=== PATIENT | female | born 1955 | race Caucasian/White ===

== ENCOUNTER 2016-05-13 19:45 | Inpatient (IN) | payer OTHER ==
[~2016-05-13] VITALS: Ht 157.5 cm; Wt 61.0 kg
--- NOTE | ~2016-05-13 | EKG ---
[address] [place] [address] ELECTROCARDIOGRAM REPORT Name: CALVIN EISENBERG Room #: 426-P ADM IN M.R.#: [id number] Admission: 05/13/16 Attend Phys: Garret Minor MD Discharge: Date of : 55 Report #: [id number] THIS REPORT FOR: //name// [facility] ED Test Date: 2016-05-13 Test Time: 19:50:03 Pat Name: CALVIN EISENBERG Department: Room: [facility] Gender: F Barber Stylist: JUSTYN : 1955 Requested By: Malik Rocha Order Number: [id number] MD: Devan Jaquez Measurements Intervals Chemult Rate: 105 P: 79 OH: 177 QRS: 63 QRSD: 100 T: 60 QT: 341 QTc: 451 Interpretive Statements Sinus tachycardia LAE Nonspecific ST segment abnormality No previous ECG available for comparison Electronically Signed On 05-14-2016 12:33:34 CDT by Devan Jaquez [email or web address] <ELECTRONICALLY SIGNED> By: Devan Jaquez MD 05/14/16 1233 1950 1950 Devan Jaquez MD /TERRENCE
--- NOTE | ~2016-05-13 | H ---
[facility] [place] [address] HISTORY AND PHYSICAL Name: CALVIN EISENBERG LADAN Room #: 426-P [facility] IN M.R.#: [id number] Admission: 05/13/16 Attend Phys: Garret Minor MD Discharge: 05/15/16 Date of : 55 Report #: [id number] THIS REPORT FOR: //name// CC: Garret Castro DATE OF SERVICE: 05/13/2016 ATTENDING PHYSICIAN: Garret Minor M.D. PRIMARY CARE PHYSICIAN: Carlyn Castro M.D., but she says she has to change to a new PCP. CHIEF COMPLAINT: Shortness of breath. HISTORY OF PRESENT ILLNESS: The patient is a 60-year-old female who continues to smoke 2 packs of cigarettes per day. She has been smoking for at least 40 years. She denies any prior diagnosis of COPD. She says she fell a week ago and hit the right side of her chest on a footboard of a bed. She says she feels like she bruised some ribs there and has continued to have some pain there. She noticed in the last 3 to 4 days increasing shortness of breath. This was new for her. She is normally very active and cleans houses for a living and is normally able to carry vacuums and supplies up and down stairs without any dyspnea on exertion. She states today when she was working, she had to stop multiple times because her chest was feeling tight and congested, and she was very short of breath. She has noticed some mild cough in the last few days, but denies any fevers. She says she normally gets bronchitis a few times a year. She has never had any formal diagnosis of COPD and has never seen a orthodontic lab technician. She has never had any pulmonary function tests and does not require any inhalers or nebulizer treatments at home. She was mildly hypoxic in the ER with oxygen saturation of 87% on room air. She has been admitted for COPD exacerbation and possible pneumonia. PAST MEDICAL HISTORY: Hypertension, hyperlipidemia and IBS. PAST SURGICAL HISTORY: Hysterectomy, knee surgery and appendectomy. ALLERGIES: None. HOME MEDICATIONS: Hyoscyamine 0.375 mg b.i.d., atorvastatin 10 mg daily, metoprolol 100 mg daily, amlodipine 5 mg daily, benazepril 40 mg daily, Tofranil 50 mg daily, calcium with vitamin D 1 tab daily, hydrochlorothiazide 25 mg daily, Prevacid 30 mg daily, estradiol 0.5 mg daily and vitamin D 400 units daily. SOCIAL HISTORY: The patient is an active smoker, smoking up to 2 packs per day [address] [address] HISTORY AND PHYSICAL Name: CALVIN EISENBERG LADAN Room #: 426-P [facility] IN M.R.#: [id number] Admission: 05/13/16 Attend Phys: Garret Minor MD Discharge: 05/15/16 Date of : 55 Report #: [id number] for the last 40 years. She does drink 5-6 beers per day, and has been doing this for many years as well. She lives alone. Denies any drug use. She works with a cleaning service. FAMILY HISTORY: Her father of heart disease. She also had multiple uncles and grandfather who had MIs. Her mother of lung cancer. REVIEW OF SYSTEMS: A 12-point review of systems was reviewed with the patient, and otherwise negative unless stated in the HPI. PHYSICAL EXAMINATION: GENERAL: The patient is an alert female, in no acute distress. VITAL SIGNS: Temperature is 36.9, heart rate 107, respirations 22, blood pressure is 167/87 and oxygen was 87% on room air on arrival. HEENT: PERRLA. Sclerae are nonicteric. Oral mucosa is pink and moist. NECK: Supple. No JVD noted. CARDIOVASCULAR: Normal S1 and S2. No murmurs, rubs or gallops. RESPIRATORY: Breath sounds with a few scattered expiratory wheezes bilaterally. She is very diminished in both bases. She has a loose nonproductive cough. ABDOMEN: Soft, nontender and nondistended with positive bowel sounds. VASCULAR: No edema noted. Pedal pulses are 2+. NEUROLOGIC: The patient is alert and oriented x 3. Speech is clear. She is moving all extremities equally. No focal neuro deficits noted. I did see her ambulate to the bathroom, and she was steady on her feet. SKIN: Intact. No rashes or lesions. LABORATORY DATA AND DIAGNOSTICS: WBC is 20.7, hemoglobin 14.8, bands are 5% and platelets 348. Sodium 131, potassium 3.3, BUN 7, creatinine 0.6 and glucose 114. LFTs are within normal limits. Troponins negative. D-dimer is 0.41. BNP 1300. EKG showing sinus tachycardia, rate of 105. Lipase is 135. Chest x-ray showed slight hyperinflation with no acute infiltrates detected. UA is negative for leukocyte esterase and WBCs. ABG showed a pH of 7.47, pCO2 of 35.9, pO2 of 73.7 and bicarbonate of 25.3 with a lactate of 0.85. ASSESSMENT AND PLAN: 1. Acute hypoxic respiratory failure: This is a probable chronic obstructive pulmonary disease exacerbation. Continue with breathing treatments and IV steroids and wean oxygen as able. She will need to have a formal diagnosis of chronic obstructive pulmonary disease at some point and follow up with Pulmonary outpatient for pulmonary function test and get set up on her maintenance therapies. Her BNP is slightly elevated. We will also check an echocardiogram in the morning. 2. Possible pneumonia: She does have associated leukocytosis and cough. We will try to obtain a sputum culture and follow blood cultures. Add Mucinex and breathing treatments. 3. Hypertension: Blood pressure is stable. Continue home medications. [facility] [address] [address] HISTORY AND PHYSICAL Name: CALVIN EISENBERG LADAN Room #: 426-P [facility] IN [facility].#: [id number] Admission: 05/13/16 Attend Phys: Garret Minor MD Discharge: 05/15/16 Date of : 55 Report #: [id number] 4. Hyperlipidemia: This is stable. Continue home medications. 5. Ongoing tobacco abuse: The patient has been advised to quit. 6. Hypokalemia: This is being replaced. Repeat labs in the morning. 7. Alcohol abuse: We will monitor for any signs of alcohol withdrawal, and if so, place on the alcohol withdrawal protocol. 8. Deep vein thrombosis prophylaxis: Start Lovenox. We will continue to follow the patient closely throughout the hospitalization and make changes based on clinical status. <ELECTRONICALLY SIGNED> By: TEO Wilkes 05/17/16 0658 0634 08 TEO Wilkes /mckay
[~2016-05-13 19:45] MED LIST: LOTREL 10-20 M1 EACH PO; NORVASC; VICODIN
[2016-05-13 19:48] VITALS: BP 167/87
[2016-05-13] MEDS ORDERED: NORVASC5 MG PO (20:10)
[2016-05-13] MEDS ORDERED: ESTRADIOL 1 MG T1 M1 PO (20:11)
[2016-05-13] MEDS ORDERED: OSCIMIN SR0.375 MG PO (20:11)
[2016-05-13] MEDS ORDERED: LIPITOR10 MG PO (20:11)
[2016-05-13] MEDS ORDERED: TOFRANIL50 MG PO (20:11)
[2016-05-13] MEDS ORDERED: BENAZEPRIL HCL40 MG PO (20:12)
[2016-05-13] MEDS ORDERED: HYDROCHLOROTHIA25 M1 PO (20:12)
[2016-05-13] MEDS ORDERED: TOPROL XL100 MG PO (20:12)
[2016-05-13] MEDS ORDERED: CALCIUM 600 +1 EAC1 PO (20:13)
[2016-05-13] MEDS ORDERED: PREVACID30 MG PO (20:13)
[2016-05-13] MEDS ORDERED: VITAMIN D3400 UNIT PO (20:13)
[2016-05-13 20:21] LABS: HEMATOCRIT 43.4 % (37.0-47.0); HEMOGLOBIN 14.8 gm/dL (12.0-15.0); MCH 30.3 pg (26.0-34.0); MCHC 34.1 g/dL (28.0-37.0); MCV 88.6 fL (80.0-100.0); PLATELET COUNT 348 thou/uL (150-400); WBC 20.7 thou/uL (4.0-11.0)
[2016-05-13 20:23] LABS: MANUAL DIFF YES
[2016-05-13 20:32] LABS: ANION GAP 11 mmol/L (7-16); BUN 7 mg/dL (7-18); CALCIUM 9.2 mg/dL (8.5-10.1); CHLORIDE 93 mmol/L (98-107); CO2 27 mmol/L (21-32); CREATININE 0.6 mg/dL (0.6-1.3); GLUCOSE 114 mg/dL (70-99); POTASSIUM 3.3 mmol/L (3.5-5.1); SODIUM 131 mmol/L (136-145)
[2016-05-13 20:39] LABS: ALBUMIN 3.7 g/dL (3.4-5.0); ALKALINE PHOSPHATASE 108 U/L (46-116); DIRECT BILIRUBIN < 0.1 mg/dL (<0.1-0.3); SGOT 17 U/L (15-37); SGPT 21 U/L (30-65); TOTAL BILIRUBIN 0.4 mg/dL (<0.1-1.0); TROPONIN-I < 0.04 ng/mL (<0.04-0.07)
[2016-05-13 20:43] LABS: ABG SAMPLE TYPE ARTERIAL; BE(vivo) 1.9 mmol/L (-2 to +3); HCO3 25.3 mmol/L (22.0-26.0); LACTATE 0.85 mmol/L (0.5-2.0); O2(CT) 19.1 mL/dL (15.0-23.0); O2Hb 92.1 % (92.0-98.0); PCO2 35.9 mmHg (35.0-45.0); PO2 73.7 mmHg (80.0-100.0); STICK SITE L.RADIAL; pH 7.466 (7.360-7.450); sO2 95.7 % (92.0-98.0); tCO2 26.4 mmol/L (24.0-30.0)
[2016-05-13 21:07] LABS: URINE BILIRUBIN NEGATIVE (Negative); URINE BLOOD 1+ (Negative); URINE COLOR YELLOW; URINE GLUCOSE-RANDOM* NEGATIVE (Negative); URINE KETONES 1+ (Negative); URINE NITRITE NEGATIVE (Negative); URINE PROTEIN (DIPSTICK) 1+ (Negative); URINE SPECIFIC GRAVITY 1.015 (1.003-1.035); URINE UROBILINOGEN 0.2 E.U./dl (0.2-1.0)
[2016-05-13 21:14] LABS: SQUAMOUS 4-10 Moderate /LPF (0-3)
[2016-05-13 21:15] LABS: BACTERIA None Seen /HPF (None Seen); CASTS None Seen /LPF (None Seen); CRYSTALS None Seen /LPF (None Seen); URINE RBC 0-2 Rare /HPF (0-2); URINE WBC None Seen /HPF (0-5)
[2016-05-13 21:30] LABS: ABSOLUTE NEUTROPHILS 17.6 thou/uL (1.4-8.2); ATYPICAL LYMPHS 1 %; TOTAL CELL COUNT 100
[2016-05-13 23:19] VITALS: BP 151/62
[2016-05-13 23:30] VITALS: BP 158/90
[2016-05-14 03:58] LABS: HEMATOCRIT 39.8 % (37.0-47.0); HEMOGLOBIN 13.5 gm/dL (12.0-15.0); MCH 30.1 pg (26.0-34.0); MCHC 33.9 g/dL (28.0-37.0); MCV 88.8 fL (80.0-100.0); RBC 4.48 mil/uL (4.20-5.00); RDW 13.8 % (10.5-14.5); WBC 14.4 thou/uL (4.0-11.0)
[2016-05-14 04:00] VITALS: BP 135/58
[2016-05-14 08:11] VITALS: BP 118/52
[2016-05-14 15:35] VITALS: BP 119/57
[2016-05-14 19:31] VITALS: BP 123/75
[2016-05-15 03:38] LABS: HEMATOCRIT 37.5 % (37.0-47.0); HEMOGLOBIN 12.7 gm/dL (12.0-15.0); MCH 30.1 pg (26.0-34.0); MCHC 33.8 g/dL (28.0-37.0); MCV 88.9 fL (80.0-100.0); PLATELET COUNT 342 thou/uL (150-400); RBC 4.21 mil/uL (4.20-5.00); WBC 22.4 thou/uL (4.0-11.0)
[2016-05-15 03:43] LABS: MANUAL DIFF YES
[2016-05-15 03:51] LABS: CALCIUM 8.4 mg/dL (8.5-10.1); CREATININE 0.6 mg/dL (0.6-1.3)
[2016-05-15 03:57] VITALS: BP 132/68
[2016-05-15 05:03] LABS: ABSOLUTE NEUTROPHILS 20.8 thou/uL (1.4-8.2); TOTAL CELL COUNT 100; TOXIC GRANULATION 1+
[2016-05-15 06:55] VITALS: BP 124/70
[2016-05-15] MEDS ORDERED: PREDNISONE 10 M10 MG PO (14:20)
[2016-05-15] MEDS ORDERED: COMBIVENT INH (14:20)
[2016-05-15] MEDS ORDERED: LEVAQUIN 750 M750 MG PO (14:20)
[2016-05-15 14:34] VITALS: BP 124/70
== END 2016-05-15 15:07 | disposition home or self-care (01) | DRG 871 ==
LOC: ER 19:45 → EROBS 22:07 → 4E 23:21
PROVIDERS: Internal Medicine Endocrinology, Diabetes & Metabolism; Nurse Practitioner
DX: A41.9 Sepsis, unspecified organism (principal); J96.01 Acute respiratory failure with hypoxia; J18.9 Pneumonia, unspecified organism; J44.0 Chronic obstructive pulmonary disease with (acute) lower respiratory infection; J44.1 Chronic obstructive pulmonary disease with (acute) exacerbation; I10 Essential (primary) hypertension; J20.9 Acute bronchitis, unspecified; E78.5 Hyperlipidemia, unspecified; K58.9 Irritable bowel syndrome, unspecified; D72.829 Elevated white blood cell count, unspecified; F17.210 Nicotine dependence, cigarettes, uncomplicated; E87.6 Hypokalemia; F10.10 Alcohol abuse, uncomplicated; Z96.659 Presence of unspecified artificial knee joint; Z79.899 Other long term (current) drug therapy; Z28.21 Immunization not carried out because of patient refusal; Z71.6 Tobacco abuse counseling; Z90.710 Acquired absence of both cervix and uterus; Z90.49 Acquired absence of other specified parts of digestive tract; Z82.49 Family history of ischemic heart disease and other diseases of the circulatory system; Z80.1 Family history of malignant neoplasm of trachea, bronchus and lung
CPT/HCPCS: 10183